=== PATIENT | female | born 1995 | race Caucasian/White ===

== ENCOUNTER 2017-04-29 10:35 | Emergency (ER) | payer OTHER ==
[~2017-04-29 10:35] MED LIST: ALBUTEROL INHALER INH; BACTRIM DS TABL1 TA1 PO; BENZONATATE PO; BIRTH CONTROL; DESYREL50 MG; DESYREL50 MG DOB; E-MYCIN250 MG PO; FLONASE 0.05% N16 G1; LOESTRIN1 TA1; LORTAB 5/500 TA1 TA2 PO; NO MEDICATIONS; NYSTATIN15 GM OINT TOP; PHENERGAN25 M1 PO; ROBITUSSIN A-C S5 ML PO; SUDAFED PO; TYLENOL #3 PO; ZOFRAN ODT4 MG PO; ZOFRANODT PO; ZOLOFT100 MG; ZYRTEC10 M2
[2017-04-29] MEDS ORDERED: ZYRTEC10 M1 PO (10:52)
[2017-04-29] MEDS ORDERED: ALBUTEROL17 GM INH (12:09)
[2017-04-29] MEDS ORDERED: DELTASONE20 MG PO (12:09)
[2017-04-29] MEDS ORDERED: BROMFED DM COU118 ML PO (12:10)
[2017-04-29] MEDS ORDERED: DOXYCYCLINE HY100 M3 PO (12:10)
[2017-04-29] MEDS ORDERED: ALBUTEROL2.5 MG/3 M INH (12:11)
== END 2017-04-29 12:12 | disposition home or self-care (01) ==
LOC: SED 10:35
DX: J20.9 Acute bronchitis, unspecified (principal); J45.909 Unspecified asthma, uncomplicated; F17.200 Nicotine dependence, unspecified, uncomplicated; Z88.0 Allergy status to penicillin; Z88.5 Allergy status to narcotic agent; Z79.899 Other long term (current) drug therapy
CPT/HCPCS: 94640; 99283